=== PATIENT | female | born 1965 | race American Indian/Alaskan Native ===

== ENCOUNTER 2018-08-12 07:51 | Outpatient (CLI) | payer MEDICARE ==
--- NOTE | 2018-08-12 12:55 | Nuclear Medicine Report ---
NUCLEAR MEDICINE GASTRIC EMPTYING SCAN HISTORY: Nausea, gastroesophageal reflux, abnormal CT of the abdomen. COMPARISON: None at this facility. FINDINGS: Anterior abdominal imaging was obtained for 90 minutes following ingestion of 1.0 mCi of technetium 9 9m sulfur colloid in oatmeal. Half-life for gastric emptying measures 47 minutes. There is no scintig raphic evidence for reflux disease. IMPRESSION: Normal gastric emptying. Signer Name: Ezra Botello Jr, MD Signed: 08/12/2018 11:50 AM Workstation Name: [id number]
== END 2018-08-12 07:52 | disposition home or self-care (01) ==
LOC: NM 07:51
PROVIDERS: ATTEND Internal Medicine Gastroenterology
DX: K21.9 Gastro-esophageal reflux disease without esophagitis (principal); K29.70 Gastritis, unspecified, without bleeding; R93.5 Abnormal findings on diagnostic imaging of other abdominal regions, including retroperitoneum; I10 Essential (primary) hypertension; J45.909 Unspecified asthma, uncomplicated
CPT/HCPCS: 78264; A9541